=== PATIENT | male | born 1960 | race Caucasian/White ===

== ENCOUNTER → 2017-11-11 | Outpatient (CLI) | payer MEDICAID ==
[~2017-11-11] MED LIST: AMLO5TAB2 PO; CYCL-259 PO; EMPA10TA PO; EMPA25TA PO; GADOBUTROL 10 MMOL/10 ML PFS ONE; GLIP1TAB4 PO; INSU100I13 SC; LINA5TAB PO; LISI40TA PO; MORP-52 PO; OXYC-307 PO; PRAV10TA2 PO; SIMV5TAB5 PO
== END | disposition home or self-care (01) ==
LOC: CFH 08:21
PROVIDERS: ATTEND Nurse Practitioner
DX: M48.061 Spinal stenosis, lumbar region without neurogenic claudication (principal); M54.16 Radiculopathy, lumbar region; Z98.890 Other specified postprocedural states
CPT/HCPCS: 72158; 82565; A9585; 72110

== ENCOUNTER → 2019-10-04 | Outpatient (CLI) | payer MEDICAID ==
[~2019-10-04] MED LIST changes: +AMLO-150 PO; -AMLO5TAB2 PO; +ATOR40TA78 PO; +CHOL100011 PO; +ERTU1TAB3 PO; -GADOBUTROL 10 MMOL/10 ML PFS ONE; +SIMV5TAB14 PO; -SIMV5TAB5 PO
== END | disposition home or self-care (01) ==
LOC: CFH 10:29
PROVIDERS: ATTEND Registered Nurse
DX: M50.122 Cervical disc disorder at C5-C6 level with radiculopathy (principal); M53.2X2 Spinal instabilities, cervical region
CPT/HCPCS: 72040